=== PATIENT | male | born 1970 | race Two or more races ===

== ENCOUNTER 2022-08-13 23:48 | Inpatient (IN) | payer OTHER, MEDICAID ==
[~2022-08-13] VITALS: Ht 175.3 cm; Wt 100.1 kg
[2022-08-14] MEDS ORDERED: ACCU-CHEK COMFORT CURVE STRIP VI ONE (00:15)
[2022-08-14 01:30] LABS: Basophils # (auto) 0.3 10 ^3/uL (0-0.2); Eosinophils # (auto) 0.5 10 ^3/uL (0-0.8); Hematocrit 43.9 % (41.0-53.0); Hemoglobin 15.3 g/dL (13.5-17.5); Lymphocytes # (auto) 2.2 10 ^3/uL (0.4-5.4); Lymphocytes % (auto) 21.1 % (10.0-50.0); Mean Corpuscular Hemoglobin 33.4 pg (28.0-32.0); Mean Corpuscular Hgb Conc. 34.8 g/dL (32.0-36.0); Mean Corpuscular Volume 95.8 fL (80.0-100.0); Monocytes % (auto) 9.7 % (0.0-12.0); Neutrophils # (auto) 6.5 10 ^3/uL (1.6-8.6); Neutrophils % (auto) 61.2 % (37.0-80.0); Nucleated Red Blood Cells % 0.1 %; Red Blood Cells 4.59 10^6/uL (4.5-5.90); Red Cell Distribution Width 13.7 % (11.8-14.3); White Blood Cell 10.6 10^3/uL (4.4-10.8)
[2022-08-14 01:42] LABS: Albumin 3.3 g/dL (3.4-5.0)
[2022-08-14 01:45] LABS: Bilirubin, Total 0.3 mg/dL (0.2-1.0); Total Protein 6.1 g/dL (6.4-8.2)
[2022-08-14 01:56] LABS: Lipase 131 U/L (73-393)
[2022-08-14 02:00] LABS: Acetaminophen < 2.0 ug/mL (10-30)
[2022-08-14 02:04] LABS: Blood Alcohol < 3.0 mg/dL (<10)
[2022-08-14 04:46] LABS: Urine Bacteria NONE SEEN /hpf (None Seen); Urine Blood Negative /uL (Negative); Urine Hyaline Cast FEW /lpf (0 - 2); Urine Mucus FEW (None Seen); Urine Specific Gravity 1.026 (1.001-1.035); Urine WBC 1 /hpf (0 - 3)
[2022-08-14] MEDS ORDERED: LACTULOSE 20Gm/30ML SOLN PO ONE (05:30)
[2022-08-14] MEDS ORDERED: NITROGLYCERIN 0.4 MG SL TAB SL PRN (05:45)
[2022-08-14] MEDS ORDERED: MORPHINE SULFATE INJ 2 MG/ml SYRG IV PRN (05:45)
[2022-08-14] MEDS ORDERED: ACETAMINOPHEN 325 MG TAB PO PRN (05:45)
[2022-08-14] MEDS ORDERED: DEXTROSE (50%) 50ML SYRG IV PRN (05:45)
[2022-08-14] MEDS ORDERED: ONDANSETRON HCL 4 MG/2 ML VIAL IV PRN (05:45)
[2022-08-14] MEDS: ACCU-CHEK COMFORT CURVE STRIP VI SCH ×2 (07:11→11:51)
[2022-08-14] MEDS: InsuLIN REG 1unit/0.01ml Soln (100units/ml) SC SCH ×2 (07:15→11:52)
[2022-08-14 07:45] LABS: BUN/Creatinine Ratio 14.3 (10.0-20.0); Calcium 7.8 mg/dL (8.5-10.1); Potassium 3.9 mmol/L (3.5-5.1)
[2022-08-14] MEDS ORDERED: METOPROLOL SUCCINATE XL 50 MG TAB PO SCH (10:00)
[2022-08-14] MEDS ORDERED: LISINOPRIL 10 MG TAB PO SCH (10:00)
[2022-08-14] MEDS ORDERED: PANTOPRAZOLE 40 MG TAB PO SCH (10:00)
[2022-08-14 15:40] VITALS: BP 110/73
[2022-08-14] MEDS ORDERED: ATORVASTATIN 20 MG TAB PO SCH (22:00)
== END 2022-08-14 12:52 | disposition left against medical advice (07) | DRG 312 ==
LOC: ER 23:48 → TELE 23:59
PROVIDERS: ADMIT Nurse Practitioner; ATTEND Nurse Practitioner Acute Care
DX: R55 Syncope and collapse (principal); I10 Essential (primary) hypertension; Z53.29 Procedure and treatment not carried out because of patient's decision for other reasons; E11.9 Type 2 diabetes mellitus without complications; Z88.0 Allergy status to penicillin
CPT/HCPCS: 36415; 36600; 70450; 71045; 71250; 74176; 80048; 80053; 80320; 80329; 81001; 82140; 82805; 82962; 83605; 83690; 83880; 84443; 84484; 85025; 93005; 93886; G0378; J1815

== ENCOUNTER → 2022-10-23 | Outpatient (CLI) | payer OTHER, MEDICAID | END | disposition home or self-care (01) | LOC: XYW 10:58 | PROVIDERS: ATTEND Internal Medicine | DX: I07.1 Rheumatic tricuspid insufficiency (principal); I31.39 Other pericardial effusion (noninflammatory) | CPT/HCPCS: 93306 ==